=== PATIENT | male | born 1955 ===

== ENCOUNTER 2017-10-17 19:30 | Emergency (ER) | payer OTHER ==
[2017-10-17 19:52] VITALS: BMI 26.4
[2017-10-17 19:54] VITALS: BP 114/77; PULSE 91; RESP 16; TEMP 98.4; O2SAT 97
--- NOTE | 2017-10-17 23:03 | ED PDOC ---
HPI: General Adult Time Seen by Provider: 10/17/17 21:11 Chief Complaint (Nursing): Flu-like Symptoms History Per: Patient Additional Complaint(s): Pt. states since the weekend he's had a cough productive of green sputum with sore throat and nasal congestion. States he has been taking OTC meds without relief. Denies chest pain, SOB, fever, hemoptysis, sick contacts, recent travel , leg pain. Past Medical History Reviewed: Historical Data, Nursing Documentation, Vital Signs Vital Signs: Last Vital Signs Temp 98.4 F 10/17/17 19:52 Pulse 91 H 10/17/17 19:52 Resp 16 10/17/17 19:52 BP 114/77 10/17/17 19:52 Pulse Ox 97 10/17/17 23:03 - Family History Family History: States: No Known Family Hx - Immunization History Hx Tetanus Toxoid Vaccination: No Hx Influenza Vaccination: No Hx Pneumococcal Vaccination: No - Home Medications Home Medications: Ambulatory Orders Medication Instructions Recorded Albuterol HFA [Ventolin HFA 90 2 puff IH [id number] PRN #90 puff 10/17/17 mcg/actuation (8 g)] Azithromycin [Zithromax] 250 mg PO DAILY #6 tab 10/17/17 Benzonatate [Tessalon Perle] 100 mg PO Q8 PRN #30 capsule 10/17/17 - Allergies Allergies/Adverse Reactions: Allergies Allergy/AdvReac Type Severity Reaction Status Date / Time No Known Allergies Allergy Verified 10/17/17 19:51 Review of Systems ROS Statement: Except As Marked, All Systems Reviewed And Found Negative ENT: Positive for: Throat Pain Respiratory: Positive for: Cough Physical Exam - Physical Exam Appears: Positive for: Well, Non-toxic, No Acute Distress Skin: Positive for: Normal Color, Warm. Negative for: Rash Eye Exam: Positive for: Normal appearance ENT: Positive for: TM Is/Are (non-erythematous, non-bulging b/l), Pharyngeal Erythema. Negative for: Tonsillar Exudate, Tonsillar Swelling Neck: Positive for: Normal, Painless ROM Cardiovascular/Chest: Positive for: Regular Rate, Rhythm Respiratory: Positive for: Normal Breath Sounds. Negative for: Crackles, Rales , Respiratory Distress Gastrointestinal/Abdominal: Positive for: Normal Exam, Soft. Negative for: Tenderness, Organomegaly Neurologic/Psych: Positive for: Alert, Oriented - ECG O2 Sat by Pulse Oximetry: 97 - Radiology X-Ray: Interpreted by Me (CXR) X-Ray Interpretation: No Acute Disease Disposition - Clinical Impression Clinical Impression: Acute bronchitis - Patient ED Disposition Is Patient to be Admitted: No - Disposition Referrals: [facility] [Outside] Disposition: Routine/Home Disposition Time: 23:03 Condition: STABLE Prescriptions: Albuterol HFA [Ventolin HFA 90 mcg/actuation (8 g)] 2 puff IH [id number] PRN #90 puff PRN Reason: Cough Azithromycin [Zithromax] 250 mg PO DAILY #6 tab Benzonatate [Tessalon Perle] 100 mg PO Q8 PRN #30 capsule PRN Reason: Cough Instructions: Acute Bronchitis (ED) Forms: [facility] (Cypriot) Print Language: SPANISH
--- NOTE | 2017-10-18 12:28 | RAD ---
HISTORY: cough COMPARISON: No prior. TECHNIQUE: Chest PA and lateral FINDINGS: LUNGS: No active pulmonary disease. PLEURA: No significant pleural effusion identified. No pneumothorax apparent. CARDIOVASCULAR: Normal. OSSEOUS STRUCTURES: Mild multilevel degenerative spondylosis of the thoracic spine VISUALIZED UPPER ABDOMEN: Normal. OTHER FINDINGS: None. IMPRESSION: No active disease.
== END 2017-10-18 | disposition home or self-care (01) ==
LOC: H.ER 19:30
DX: J20.9 Acute bronchitis, unspecified (principal)

== ENCOUNTER 2017-10-27 13:05 | Emergency (ER) | payer OTHER, SELFPAY ==
[2017-10-27 13:21] VITALS: BP 118/74; PULSE 66; RESP 18; TEMP 97.7; O2SAT 96
--- NOTE | 2017-10-27 13:29 | ED PDOC ---
HPI: Chest Pain Time Seen by Provider: 10/27/17 13:17 Chief Complaint (Nursing): Chest Pain Chief Complaint (Provider): Chest Pain History Per: Patient History/Exam Limitations: no limitations Onset/Duration Of Symptoms: Days (x2) Current Symptoms Are (Timing): Still Present Additional Complaint(s): 62 year old male with no significant past medical history, who presents to the ED complaining of sharp left-sided chest pain x2 days associated with shortness of breath. Patient denies any pain today. Also denies fever, cough, nausea, or vomiting. PMD: None provided Past Medical History Reviewed: Historical Data, Nursing Documentation, Vital Signs Vital Signs: Last Vital Signs Temp 97.7 F 10/27/17 13:19 Pulse 66 10/27/17 13:19 Resp 18 10/27/17 13:19 BP 118/74 10/27/17 13:19 Pulse Ox 96 10/27/17 13:32 - Medical History PMH: No Chronic Diseases - Surgical History Surgical History: No Surg Hx - Family History Family History: States: Unknown Family Hx - Immunization History Hx Tetanus Toxoid Vaccination: No Hx Influenza Vaccination: No Hx Pneumococcal Vaccination: No - Home Medications Home Medications: Ambulatory Orders Medication Instructions Recorded Albuterol HFA [Ventolin HFA 90 2 puff IH [id number] PRN #90 puff 10/17/17 mcg/actuation (8 g)] Azithromycin [Zithromax] 250 mg PO DAILY #6 tab 10/17/17 Benzonatate [Tessalon Perle] 100 mg PO Q8 PRN #30 capsule 10/17/17 Non-Formulary 1 ea .ROUTE Q6 #1 ea 10/27/17 - Allergies Allergies/Adverse Reactions: Allergies Allergy/AdvReac Type Severity Reaction Status Date / Time No Known Allergies Allergy Verified 10/27/17 13:18 Review of Systems ROS Statement: Except As Marked, All Systems Reviewed And Found Negative Constitutional: Negative for: Fever Cardiovascular: Positive for: Chest Pain Respiratory: Positive for: Shortness of Breath. Negative for: Cough Gastrointestinal: Negative for: Nausea, Vomiting Physical Exam - Reviewed Nursing Documentation Reviewed: Yes Vital Signs Reviewed: Yes - Physical Exam Appears: Positive for: Non-toxic, No Acute Distress Head Exam: Positive for: ATRAUMATIC Skin: Positive for: Normal Color, Warm, DRY Eye Exam: Positive for: Normal appearance Cardiovascular/Chest: Positive for: Regular Rate, Rhythm. Negative for: Chest Non Tender, Murmur Respiratory: Positive for: Normal Breath Sounds. Negative for: Respiratory Distress Gastrointestinal/Abdominal: Positive for: Normal Exam, Bowel Sounds, Soft. Negative for: Tenderness Extremity: Positive for: Normal ROM. Negative for: Pedal Edema, Deformity, Swelling Neurologic/Psych: Positive for: Alert, Oriented (x3) - Laboratory Results Result Diagrams: 10/27/17 13:50 10/27/17 13:50 - ECG O2 Sat by Pulse Oximetry: 96 (RA) Pulse Ox Interpretation: Normal Medical Decision Making Medical Decision Making: Time: 13:24 Initial Plan: --EKG --CMP --Troponin I --CBC w/ differential --Chest X-Ray 2 views --Reevaluation Scribe Attestation: Documented by Luis Atkinson, acting as a scribe for Matias Lynn MD. No chest pain today with nl EKG and neg Troponin. Will need w/u including Stress test as outpt. Provider Scribe Attestation: All medical record entries made by the Scribe were at my direction and personally dictated by me. I have reviewed the chart and agree that the record accurately reflects my personal performance of the history, physical exam, medical decision making, and the department course for this patient. I have also personally directed, reviewed, and agree with the discharge instructions and disposition. Disposition - Clinical Impression Clinical Impression: Chest pain - Patient ED Disposition Is Patient to be Admitted: No Counseled Patient/Family Regarding: Studies Performed, Diagnosis, Need For Followup, Rx Given - Disposition Referrals: [facility] [Outside] Disposition: Routine/Home Disposition Time: 14:25 Condition: FAIR Prescriptions: Non-Formulary 1 ea .ROUTE Q6 #1 ea Instructions: Chest Pain Forms: [employer] (New Zealander)
[2017-10-27 14:00] LABS: BASO % 0.6 % (0.0-2.0); EOS # 0.3 K/uL (0.0-0.7); EOS % 3.7 % (0.0-4.0); HEMOGLOBIN 15.2 g/dL (12.0-18.0); LYMPH # 1.9 K/uL (1.0-4.3); LYMPH % 27.8 % (20.0-40.0); MEAN CORPUSCULAR HEMOGLOBIN 30.8 pg (27.0-31.0); MEAN CORPUSCULAR HGB CONC 33.1 g/dL (33.0-37.0); MEAN PLATELET VOLUME 9.9 fl (7.2-11.7); MONO # 0.7 K/uL (0.0-0.8); MONO % 10.2 % (0.0-10.0); NEUT # 3.9 K/uL (1.8-7.0); NEUT % 57.7 % (50.0-75.0); NRBC % 0.2 % (0.0-0.0); RBC 4.95 Mil/uL (4.40-5.90); RED CELL DISTRIBUTION WIDTH 13.4 % (11.5-14.5); WHITE BLOOD COUNT 6.8 K/uL (4.8-10.8)
[2017-10-27 14:06] LABS: ALB/GLOB RATIO 1.3 (1.0-2.1); ALBUMIN 3.9 g/dL (3.5-5.0); ALT/SGPT 38 U/L (21-72); AST/SGOT 25 U/L (17-59); BLOOD UREA NITROGEN 20 mg/dl (9-20); CALCIUM 9.1 mg/dL (8.4-10.2); GFR AFRICAN-AMERICAN > 60; GFR NON-AFRICAN AMERICAN > 60
--- NOTE | 2017-10-27 14:23 | RAD ---
HISTORY: COMPARISON: 10/17/2017 TECHNIQUE: Chest PA and lateral FINDINGS: LINES AND TUBES: None. LUNG AND PLEURA: The lungs are well inflated and clear. HEART AND MEDIASTINUM: The heart is not enlarged. The hilar and mediastinal contours are within normal limits. SKELETAL STRUCTURES: The bony structures are within normal limits for the patient's age. VISUALIZED UPPER ABDOMEN: Normal. OTHER FINDINGS: None. IMPRESSION: No active pulmonary disease.
--- NOTE | 2017-10-29 03:10 | CARD ---
APPROVED REPORT EKG Measurement Heart [id number] SD [id number] <Conclusion> Normal sinus rhythm Normal ECG
== END 2017-10-27 14:39 | disposition home or self-care (01) ==
LOC: H.ER 13:05
DX: R07.89 Other chest pain (principal)

== ENCOUNTER 2018-02-16 15:36 | Emergency (ER) | payer SELFPAY ==
[2018-02-16 15:36] VITALS: BMI 25.7
[2018-02-16 15:40] VITALS: BP 136/88; PULSE 84; RESP 16; TEMP 97.9; O2SAT 100
--- NOTE | 2018-02-16 16:51 | ED PDOC ---
HPI: General Adult Time Seen by Provider: 02/16/18 16:06 Chief Complaint (Nursing): ENT Problem Chief Complaint (Provider): Right Ear pain History Per: Patient, [employer] History/Exam Limitations: language barrier (deaf interpreter used) Onset/Duration Of Symptoms: Days (>180) Have you had recent travel within the past 21 days to any of the following countries: [place], [place], [place] or [place]?: No Current Symptoms Are (Timing): Intermittent Episodes Additional Complaint(s): 62 y/o male presents to the ED with right ear pain. Patient reports that he feels discomfort to his right ear for the past month. He states it feels like it is clogged up with difficulty hearing from the right ear. Patient also complains of right elbow pain for the past 6 months that has progressively gotten worse. He denies having a PMD. Patient reports using ear drops with no relief. Past Medical History Reviewed: Historical Data, Nursing Documentation, Vital Signs Vital Signs: Last Vital Signs Temp 97.9 F 02/16/18 15:38 Pulse 84 02/16/18 15:38 Resp 16 02/16/18 15:38 BP 136/88 02/16/18 15:38 Pulse Ox 100 02/16/18 17:01 - Medical History PMH: No Chronic Diseases - Surgical History Surgical History: No Surg Hx - Family History Family History: States: Unknown Family Hx - Immunization History Hx Tetanus Toxoid Vaccination: No Hx Influenza Vaccination: No Hx Pneumococcal Vaccination: No - Home Medications Home Medications: Ambulatory Orders Medication Instructions Recorded Albuterol HFA [Ventolin HFA 90 2 puff IH [id number] PRN #90 puff 10/17/17 mcg/actuation (8 g)] Azithromycin [Zithromax] 250 mg PO DAILY #6 tab 10/17/17 Benzonatate [Tessalon Perle] 100 mg PO Q8 PRN #30 capsule 10/17/17 Non-Formulary 1 ea .ROUTE Q6 #1 ea 10/27/17 - Allergies Allergies/Adverse Reactions: Allergies Allergy/AdvReac Type Severity Reaction Status Date / Time No Known Allergies Allergy Verified 10/27/17 13:18 Review of Systems ROS Statement: Except As Marked, All Systems Reviewed And Found Negative ENT: Positive for: Ear Pain (right ear discomfort), Other (difficulty hearing from right ear with a sensation that it is cloggedd up) Musculoskeletal: Positive for: Arm Pain (right elbow pain) Physical Exam - Reviewed Nursing Documentation Reviewed: Yes Vital Signs Reviewed: Yes - Physical Exam Appears: Positive for: Well, Non-toxic, No Acute Distress Head Exam: Positive for: ATRAUMATIC, NORMOCEPHALIC Skin: Positive for: Normal Color, Warm, Dry Eye Exam: Positive for: EOMI, Normal appearance, PERRL ENT: Positive for: Normal ENT Inspection (ears are intact), TM Is/Are ( bilaterally normal with no wax), Hearing Is (left is normal, right has descreased hearing), Other (bilateral ear positive for light reflection, right side TMJ distinct clicking sound) Neurologic/Psych: Positive for: Alert, Oriented (x3) - ECG O2 Sat by Pulse Oximetry: 100 (RA) Pulse Ox Interpretation: Normal Medical Decision Making Medical Decision Making: Time: 15:38 Impression: TMJ Plan: * Patient to be referred to a dentist for TMJ . Patient to be referred to clinic for a PMD. Scribe Attestation: Documented by Elia Bates acting as a scribe Em Sheets PA-C. Scribe Attestation: All medical record entries made by the Scribe were at my direction and personally dictated by me. I have reviewed the chart and agree that the record accurately reflects my personal performance of the history, physical exam, medical decision making, and the department course for this patient. I have also personally directed, reviewed, and agree with the discharge instructions and disposition. Disposition - Clinical Impression Clinical Impression: TMJ (temporomandibular joint syndrome), Right ear pain - Patient ED Disposition Is Patient to be Admitted: No Doctor Will See Patient In The: Office Counseled Patient/Family Regarding: Diagnosis, Need For Followup - Disposition Referrals: [facility] [Outside] [facility] [Outside] Disposition: Routine/Home Disposition Time: 17:05 Condition: STABLE Instructions: Temporomandibular Joint (TMJ) Disorders, Temporomandibular Joint (TMJ) Disorders (DC) Forms: [facility] (Tristanian) Print Language: RWANDAN
== END 2018-02-16 17:17 | disposition home or self-care (01) ==
LOC: H.ER 15:36
DX: M26.69 Other specified disorders of temporomandibular joint (principal); H92.01 Otalgia, right ear

== ENCOUNTER 2018-03-23 16:52 | Emergency (ER) | payer SELFPAY ==
[2018-03-23 16:52] VITALS: BMI 25.7
[2018-03-23 17:21] VITALS: O2SAT 100
--- NOTE | 2018-03-23 20:11 | ED PDOC ---
HPI: General Adult Time Seen by Provider: 03/23/18 17:00 Chief Complaint (Nursing): GI Problem Chief Complaint (Provider): GI Problem History Per: Patient History/Exam Limitations: no limitations Onset/Duration Of Symptoms: Days (x 2 weeks ) Current Symptoms Are (Timing): Still Present Additional Complaint(s): 62 year old male presents to the ED with constipation for the last 2 weeks. Patient reports he defecates very little when he does and also complains of an intermittent headache. Offers no other medical complaints. PMD: Dr. Tate Past Medical History Reviewed: Historical Data, Nursing Documentation, Vital Signs Vital Signs: Last Vital Signs Temp 98.4 F 03/23/18 21:58 Pulse 88 03/23/18 21:58 Resp 20 03/23/18 21:58 BP 120/82 03/23/18 21:58 Pulse Ox 100 03/23/18 21:58 - Medical History PMH: No Chronic Diseases - Surgical History Surgical History: Appendectomy - Family History Family History: States: Unknown Family Hx - Social History Current smoker - smoking cessation education provided: No Alcohol: None Drugs: Denies - Immunization History Hx Tetanus Toxoid Vaccination: No Hx Influenza Vaccination: No Hx Pneumococcal Vaccination: No - Home Medications Home Medications: Ambulatory Orders Medication Instructions Recorded Albuterol HFA [Ventolin HFA 90 2 puff IH [id number] PRN #90 puff 10/17/17 mcg/actuation (8 g)] Azithromycin [Zithromax] 250 mg PO DAILY #6 tab 10/17/17 Benzonatate [Tessalon Perle] 100 mg PO Q8 PRN #30 capsule 10/17/17 Non-Formulary 1 ea .ROUTE Q6 #1 ea 10/27/17 Ciprofloxacin/Dexamethasone 1 drop OD QID #1 bottle 03/23/18 [Ciprodex 0.3%-0.1% 7.5 Ml] - Allergies Allergies/Adverse Reactions: Allergies Allergy/AdvReac Type Severity Reaction Status Date / Time No Known Allergies Allergy Verified 03/23/18 17:19 Review of Systems ROS Statement: Except As Marked, All Systems Reviewed And Found Negative Gastrointestinal: Positive for: Constipation Neurological: Positive for: Headache. Negative for: Weakness, Numbness, Incoordination, Change in Speech, Confusion, Seizures, Altered Mental Status, Dizziness Physical Exam - Reviewed Nursing Documentation Reviewed: Yes Vital Signs Reviewed: Yes - Physical Exam Appears: Positive for: Non-toxic, No Acute Distress Head Exam: Positive for: ATRAUMATIC, NORMAL INSPECTION, NORMOCEPHALIC Skin: Positive for: Normal Color, Warm, Dry Eye Exam: Positive for: EOMI, Normal appearance, PERRL ENT: Positive for: TM Is/Are (external right ear swelling; middle ear is normal -TM visualized) Neck: Positive for: Normal, Painless ROM, Supple Cardiovascular/Chest: Positive for: Regular Rate, Rhythm. Negative for: Murmur Respiratory: Positive for: Normal Breath Sounds. Negative for: Respiratory Distress Gastrointestinal/Abdominal: Positive for: Normal Exam, Soft. Negative for: Tenderness Extremity: Positive for: Normal ROM. Negative for: Deformity Neurologic/Psych: Positive for: Alert, Oriented (x 3). Negative for: Motor/ Sensory Deficits - Laboratory Results Result Diagrams: 03/23/18 21:11 03/23/18 21:11 - ECG O2 Sat by Pulse Oximetry: 100 (RA) Pulse Ox Interpretation: Normal Medical Decision Making Medical Decision Making: CC: Constipation, mild headache, external otitis infection (R) - otic ear drops -colace pt stable for dc, instructed to follow up with primary doctor/ENT follow up ( which pt has appt for) Disposition - Clinical Impression Clinical Impression: Constipation, Otitis externa - Patient ED Disposition Is Patient to be Admitted: No Counseled Patient/Family Regarding: Studies Performed, Diagnosis, Need For Followup - Disposition Disposition: Routine/Home Disposition Time: 21:00 Condition: IMPROVED Additional Instructions: follow up in the clinic in 2 days return to the ED with any worsening or concerning symptoms Prescriptions: Ciprofloxacin/Dexamethasone [Ciprodex 0.3%-0.1% 7.5 Ml] 1 drop OD QID #1 bottle Instructions: Constipation, Adult (DC), Outer Ear Infection (DC) Forms: [employer] (Beninese) Print Language: [place] R[place]
[2018-03-23 21:14] LABS: BASO % 0.5 % (0.0-2.0); EOS # 0.2 K/uL (0.0-0.7); LYMPH % 34.3 % (20.0-40.0); MEAN CELL VOLUME 94.3 fl (80.0-94.0); MEAN CORPUSCULAR HEMOGLOBIN 31.9 pg (27.0-31.0); MEAN CORPUSCULAR HGB CONC 33.8 g/dL (33.0-37.0); MONO # 0.6 K/uL (0.0-0.8); NEUT % 52.2 % (50.0-75.0); RBC 5.02 Mil/uL (4.40-5.90); RED CELL DISTRIBUTION WIDTH 13.6 % (11.5-14.5); WHITE BLOOD COUNT 5.8 K/uL (4.8-10.8)
[2018-03-23 21:27] LABS: ALB/GLOB RATIO 1.4 (1.0-2.1); ALBUMIN 4.1 g/dL (3.5-5.0); ALT/SGPT 34 U/L (21-72); AST/SGOT 25 U/L (17-59); BLOOD UREA NITROGEN 18 mg/dl (9-20); CALCIUM 8.8 mg/dL (8.4-10.2); GFR AFRICAN-AMERICAN > 60; GFR NON-AFRICAN AMERICAN > 60
[2018-03-23 21:59] VITALS: BP 120/82; PULSE 88; RESP 20; TEMP 98.4
== END 2018-03-23 21:50 | disposition home or self-care (01) ==
LOC: H.ER 16:52
DX: K59.00 Constipation, unspecified (principal)

== ENCOUNTER 2018-12-28 10:17 | Emergency (ER) | payer OTHER, SELFPAY ==
[2018-12-28 10:20] VITALS: BMI 26.4
[2018-12-28 10:22] VITALS: RESP 20
--- NOTE | 2018-12-28 10:53 | ED PDOC ---
Lower Extremity Pain/Injury Time Seen by Provider: 12/28/18 10:48 Chief Complaint (Nursing): Lower Extremity Problem/Injury Chief Complaint (Provider): left knee pain History Per: Patient (63 y/o male here with left knee pain noted x 1 month ongoing worse with standing at work. Denies any falls/injury. Takes intermittent anti-inflammatory for pain management.) Past Medical History Reviewed: Historical Data, Nursing Documentation, Vital Signs Vital Signs: Last Vital Signs Temp 97.7 F 12/28/18 10:20 Pulse 58 L 12/28/18 10:20 Resp 20 12/28/18 10:20 BP 139/82 12/28/18 10:20 Pulse Ox 97 12/28/18 10:20 - Surgical History Surgical History: Appendectomy - Family History Family History: States: Unknown Family Hx - Immunization History Hx Tetanus Toxoid Vaccination: No Hx Influenza Vaccination: No Hx Pneumococcal Vaccination: No - Home Medications Home Medications: Ambulatory Orders Medication Instructions Recorded Albuterol HFA [Ventolin HFA 90 2 puff IH [id number] PRN #90 puff 10/17/17 mcg/actuation (8 g)] Azithromycin [Zithromax] 250 mg PO DAILY #6 tab 10/17/17 Benzonatate [Tessalon Perle] 100 mg PO Q8 PRN #30 capsule 10/17/17 Non-Formulary 1 ea .ROUTE Q6 #1 ea 10/27/17 Ciprofloxacin/Dexamethasone 1 drop OD QID #1 bottle 03/23/18 [Ciprodex 0.3%-0.1% 7.5 Ml] Ibuprofen [Motrin] 600 mg PO Q8 PRN #21 tab 12/28/18 - Allergies Allergies/Adverse Reactions: Allergies Allergy/AdvReac Type Severity Reaction Status Date / Time No Known Allergies Allergy Verified 03/23/18 17:19 Review of Systems ROS Statement: Except As Marked, All Systems Reviewed And Found Negative Musculoskeletal: Positive for: Other (knee pain) Physical Exam - Reviewed Nursing Documentation Reviewed: Yes Vital Signs Reviewed: Yes - Physical Exam Appears: Positive for: Well, Non-toxic, No Acute Distress Head Exam: Positive for: ATRAUMATIC, NORMAL INSPECTION, NORMOCEPHALIC Skin: Positive for: Normal Color, Warm, DRY Eye Exam: Positive for: EOMI, Normal appearance, PERRL ENT: Positive for: Normal ENT Inspection Neck: Positive for: Normal, Painless ROM Cardiovascular/Chest: Positive for: Regular Rate, Rhythm Respiratory: Positive for: CNT, Normal Breath Sounds Gastrointestinal/Abdominal: Positive for: Normal Exam, Soft Back: Positive for: Normal Inspection Extremity: Positive for: Normal ROM, Tenderness (nontender knee. no effusion. Patient describes pain 'within.') Neurological/Psych: Positive for: Awake, Alert, Normal Tone - ECG O2 Sat by Pulse Oximetry: 97 - Progress ED Course And Treament: xry of knee L: moderate arthritis Disposition - Clinical Impression Clinical Impression: Arthralgia of knee, left - Patient ED Disposition Is Patient to be Admitted: No - Disposition Referrals: [facility] [Outside] Disposition: Routine/Home Disposition Time: 11:12 Condition: FAIR Prescriptions: Ibuprofen [Motrin] 600 mg PO Q8 PRN #21 tab PRN Reason: Pain, Moderate (4-7) Instructions: Knee Pain (DC), Osteoarthritis (DC) Forms: [facility] ED School/Work Excuse Print Language: MALDIVIAN
[2018-12-28 11:31] VITALS: BP 126/78; PULSE 78; TEMP 97.6; O2SAT 98
--- NOTE | 2018-12-28 11:53 | RAD ---
Date of service: 12/28/2018 PROCEDURE: Left Knee Radiographs. HISTORY: Pain. COMPARISON: None. TECHNIQUE: 2 views obtained. FINDINGS: BONES: Normal. No fracture. JOINTS: Normal. No osteoarthritis. JOINT EFFUSION: None. OTHER FINDINGS: None. IMPRESSION: Normal radiographs of the left knee.
== END 2018-12-28 11:31 | disposition home or self-care (01) ==
LOC: H.ER 10:17
DX: M25.562 Pain in left knee (principal)